=== PATIENT | female | born 1950 | race Caucasian/White ===

== ENCOUNTER 2017-01-30 16:34 | Emergency (ER) | payer MEDICARE ==
[2017-01-30 17:14] LABS: BASOPHILS 0.3 % (0-2); EOSINOPHILS 3.4 % (0-7); HEMATOCRIT 45.1 % (36.0-48.0); HEMOGLOBIN 15.1 g/dL (12-16); IMMATURE GRANULOCYTES 0.2 % (0-5); LYMPHOCYTES 24.9 % (15-50); MCH 31.5 pg (26.0-34.0); MCHC 33.5 g/dL (31.0-37.0); MEAN PLATELET VOLUME 10.1 fL (7.4-10.4); MONOCYTES 8.1 % (2-11); NEUTROPHILS 63.1 % (40-80); PLATELET COUNT 243 10x3/uL (130-400); RDW 12.7 % (11.5-14.5); WBC 8.7 10x3/uL (4.8-10.8)
[2017-01-30 17:34] LABS: ALBUMIN 4.4 g/dL (3.4-5.0); ALKALINE PHOSPHATASE 86 U/L (46-116); ALT (SGPT) 32 U/L (10-68); BILIRUBIN - TOTAL 0.56 mg/dL (0.2-1.3); CALC OSMOLALITY 282 mosm/kg (275-300); CALCIUM 9.3 mg/dL (8.5-10.1); CARBON DIOXIDE 25.7 mmol/L (21.0-32.0); CHLORIDE - SERUM 103 mmol/L (98-107); CREATININE - SERUM 1.4 mg/dL (0.6-1.3); GLUCOSE 87 mg/dL (74-106); PROTEIN - SERUM 7.8 g/dL (6.4-8.2); SODIUM 141 mmol/L (136-145); UREA NITROGEN 20 mg/dL (7-18); eGFR NON AFRICAN AMERICAN 40 mL/min (90-120)
[2017-01-30 17:44] LABS: CKMB 5.1 U/L (0.0-3.6); CREATINE KINASE 242 UL (21-215)
[2017-01-30 17:47] LABS: TROPONIN-I < 0.017 ng/mL (0.000-0.060)
== END 2017-01-30 18:51 | disposition home or self-care (01) ==
LOC: D.ER 16:34
PROVIDERS: Emergency Medicine
DX: R07.89 Other chest pain (principal)

== ENCOUNTER 2017-02-13 18:31 | Observation (INO) | payer MEDICARE ==
[2017-02-13 19:08] LABS: BASOPHILS 0.3 % (0-2); HEMATOCRIT 42.2 % (36.0-48.0); HEMOGLOBIN 14.1 g/dL (12-16); IMMATURE GRANULOCYTES 0.3 % (0-5); LYMPHOCYTES 23.8 % (15-50); MCH 31.3 pg (26.0-34.0); MCHC 33.4 g/dL (31.0-37.0); MCV 93.8 fL (80.0-100.0); MEAN PLATELET VOLUME 10.2 fL (7.4-10.4); MONOCYTES 8.3 % (2-11); NEUTROPHILS 64.3 % (40-80); PLATELET COUNT 204 10x3/uL (130-400); RDW 12.9 % (11.5-14.5); WBC 7.7 10x3/uL (4.8-10.8)
[2017-02-13 19:33] LABS: ALBUMIN 3.8 g/dL (3.4-5.0); ALKALINE PHOSPHATASE 82 U/L (46-116); ALT (SGPT) 25 U/L (10-68); BILIRUBIN - TOTAL 0.25 mg/dL (0.2-1.3); CALC OSMOLALITY 278 mosm/kg (275-300); CALCIUM 9.3 mg/dL (8.5-10.1); CARBON DIOXIDE 25.6 mmol/L (21.0-32.0); CHLORIDE - SERUM 103 mmol/L (98-107); CREATININE - SERUM 0.7 mg/dL (0.6-1.3); GLUCOSE 99 mg/dL (74-106); POTASSIUM - SERUM 3.6 mmol/L (3.5-5.1); PROTEIN - SERUM 7.2 g/dL (6.4-8.2); SODIUM 138 mmol/L (136-145); UREA NITROGEN 20 mg/dL (7-18); eGFR NON AFRICAN AMERICAN 89 mL/min (90-120)
[2017-02-13 19:43] LABS: MAGNESIUM - SERUM 2.3 mg/dL (1.8-2.4); PRO BNP 99 pg/mL (0-125)
[2017-02-13 19:47] LABS: TROPONIN-I < 0.017 ng/mL (0.000-0.060)
[2017-02-13 23:06] VITALS: BP 98/60; BMI 27.5
--- NOTE | 2017-02-14 00:45 | NUR ---
PT ARRIVED TO ROOM VIA STRETCHER FROM ER, AWAKE, ALERT, ORIENTED, SISTER AT BEDSIDE. PT IS C/O BEING DIZZY WHILE LYING DOWN. PTS HR HAS DROPPED INTO THE 30'S WHEN THIS HAPPENS. PT WAS BROUGHT TO ME WITH DILTIAZEM GTT AT 15MLS/HR, IN WHICH I DECREASED TO 10MLS THEN NOW @ 5 MLS/HR. PT IS CURRENTLY SITTING UP IN BED, LOOKING AT THE TELEVISION, AND TALKING ON HER CELL PHONE. TURKEY SANDWICH GIVEN TO PT ALONG WITH A CUP OF ICE WATER. NO OTHER NEEDS AT THIS TIME. I HAVE STRESSED TO PT AND HAVE URGED PT SEVERAL TIMES TO ALWAYS CALL BEFORE EVER TRYING TO GET UP R/T HER DIZZINESS AND BRADYCARDIA. PT HAS CONVERTED BACK INTO SINUS RHYTHM WITH A RATE IN THE LOW 40'S. WILL CONTINUE TO MONITOR PT CLOSELY. BED LOW, CALL LIGHT IN REACH, SIDE RAILS X 2, HOB 30-35 DEGREES.
[2017-02-14 01:54] VITALS: BP 88/51
--- NOTE | 2017-02-14 01:55 | NUR ---
I HAVE TURNED THE DILTIAZEM GTT OFF AT THIS TIME R/T PTS HR BEING 38-40 AND HER B/P BEING 88/51. I HAVE PLACED PT ON 02 VIA NC SO THAT PT CAN REST. PT IS C/O CHEST PAIN AND INCREASED SOB. O2 SAT WITH 2LPM IS 98%. WILL CONTINUE TO MONITOR PT CLOSELY.
--- NOTE | 2017-02-14 02:14 | NUR ---
PT STATES SHE IS NOT HAVING CHEST PAIN, JUST UNCOMFORTABLE R/T NOT BEING ABLE TO BREATH. SHE DOES NOT DEMONSTRATE DYSPNEA, BUT STATES THAT SHE JUST FEELS LIKE SHE CANNOT BREATH. PT DID RECEIVE A LOVENOX INJECTION IN THE ER. PT REMAINS AWAKE, ALERT, ORIENTED AT THIS TIME. WILL CONTINUE TO MONITOR CLOSELY.
--- NOTE | 2017-02-14 08:09 | NUR ---
ASSESSMENT DONE. DENIES NEEDS.
[2017-02-14 08:11] VITALS: BP 127/80
--- NOTE | 2017-02-14 08:36 | NUR ---
RESTS IN BED WITH CALL LIGHT IN REACH. WILL CONT. PLAN OF CARE.
[2017-02-14 12:10] VITALS: BP 121/69
[2017-02-14] MEDS ORDERED: XARELTO15 MG PO (13:57)
[2017-02-14] MEDS ORDERED: RYTHMOL PO (13:57)
[2017-02-14 15:26] VITALS: BP 126/53
--- NOTE | 2017-02-14 15:50 | NUR ---
DC GIVEN TO PT
--- NOTE | 2017-02-14 16:00 | NUR ---
DC HOME PER PERSONAL CAR
[2017-02-14 16:06] LABS: ALBUMIN 3.5 g/dL (3.4-5.0); ALKALINE PHOSPHATASE 73 U/L (46-116); ALT (SGPT) 25 U/L (10-68); CALC OSMOLALITY 284 mosm/kg (275-300); CALCIUM 8.9 mg/dL (8.5-10.1); CARBON DIOXIDE 25.8 mmol/L (21.0-32.0); CHLORIDE - SERUM 108 mmol/L (98-107); CREATININE - SERUM 0.8 mg/dL (0.6-1.3); GLUCOSE 106 mg/dL (74-106); PROTEIN - SERUM 6.5 g/dL (6.4-8.2); SODIUM 141 mmol/L (136-145); UREA NITROGEN 24 mg/dL (7-18); eGFR NON AFRICAN AMERICAN 76 mL/min (90-120)
[2017-02-14 16:25] LABS: BASOPHILS 0.4 % (0-2); EOSINOPHILS 4.6 % (0-7); HEMATOCRIT 41.1 % (36.0-48.0); HEMOGLOBIN 13.3 g/dL (12-16); IMMATURE GRANULOCYTES 0.4 % (0-5); LYMPHOCYTES 30.9 % (15-50); MCH 30.9 pg (26.0-34.0); MCHC 32.4 g/dL (31.0-37.0); MCV 95.4 fL (80.0-100.0); MEAN PLATELET VOLUME 10.5 fL (7.4-10.4); MONOCYTES 8.8 % (2-11); NEUTROPHILS 54.9 % (40-80); PLATELET COUNT 217 10x3/uL (130-400); RBC 4.31 10x6/uL (4.00-5.40); RDW 13.1 % (11.5-14.5); WBC 6.7 10x3/uL (4.8-10.8)
--- NOTE | 2017-02-22 12:47 | EC ---
PATIENT:CARMEN RAUSCH DATE OF SERVICE: 02/13/17 SEX: F MEDICAL RECORD: [id number] DATE OF : 50 LOCATION:D.M2 D.212 AGE OF PATIENT: 66 ADMISSION DATE: 02/13/17 REFERRING PHYSICIAN: INTERPRETING PHYSICIAN: JANE GERMAN MD ECHOCARDIOGRAM REPORT ECHO CHARGES 4 ECHO COMPLETE CLINICAL DIAGNOSIS: FLUTTER ECHOCARDIOGRAPHIC MEASUREMENTS (adult normal given) AC root (d.<3.7cm) 2.8 cm LV Septum d (<1.2 cm> 1.4 cm Valve Excursion 1.7 cm LV Septum (systole) 1.6 cm Left Atria (s.<4.0cm> 3.9 cm LVPW d(<1.2cm) 1.2 cm RV (d.<2.3cm) 1.8 cm LVPW (sytole) 1.7 cm LV diastole(<5.6CM) 5.7 cm MV E-F(>70mm/sec) cm LV systole 4.4 cm LVOT Diameter 1.7 cm MV exc.(>10mm) cm Est.ejection fraction (50-75%) % Pericardial Effusion N DOPPLER: LVIT cm/sec A 60.0 cm/sec E 86.0 cm/sec LA cm/sec RVSP 31.0 mmHg LVOT 118 cm/sec AOP1/2T m/s Asc. Ao 162 cm/sec RVOT 59.0 cm/sec RA cm/sec PA 93.0 cm/sec AV Gradient Peak 10.4 mmHg AV Mean 5.1 mmHg AV Area 1.5 cm MV Gradient Peak 4.1 mmHg MV Mean 1.5 mmHg MV Area cm COMMENTS: Claim Professional: Luis Armando CHACKOOE Billing Checker: Debora German TAPE# PACS DATE OF SERVICE: 02/14/2017 PROCEDURE: Transthoracic echocardiogram. FINDINGS: 1. The left ventricle shows evidence of left ventricular hypertrophy, in-flow characteristics are normal. The ejection fraction is 60%. There is no significant abnormalities of the left ventricle. 2. Left atrium is normal size, normal function. 3. The aortic valve appears structurally normal. ECHOCARDIOGRAM REPORT [id number] CARMEN RAUSCH 4. The tricuspid valve has trace tricuspid regurgitation and normal right ventricular systolic pressures with a peak systolic pressure of approximately 20. 5. The mitral shows mild to mildly moderate mitral regurgitation. 6. Pericardium is normal. 7. The right atrium and right ventricle are normal size, normal shape, normal structure and there is no evidence of right-sided pressure overloading. CONCLUSIONS: The patient has evidence of mild hypertensive heart disease. Otherwise, a fairly normal echocardiogram. TRANSINT:[id number] Voice Confirmation ID: [id number] DOCUMENT ID: [id number] JANE GERMAN MD at 1247 CC: [id number] DICTATION DATE: 02/15/17917 LEGAL BILLING ANALYST: 02/15/17 1050 DIS IN 02/14/17 [facility] [address] [place] [address]
== END 2017-02-14 16:01 | disposition home or self-care (01) ==
LOC: D.ER 18:31 → OBSVTIME 20:20 → D.M2 20:20
PROVIDERS: Family Medicine; ADMIT Family Medicine
DX: I48.91 Unspecified atrial fibrillation (principal); I48.92 Unspecified atrial flutter; Z87.891 Personal history of nicotine dependence; R55 Syncope and collapse

== ENCOUNTER 2017-04-23 19:27 | Inpatient (IN) | payer MEDICARE ==
[~2017-04-23] VITALS: Ht 157.5 cm; Wt 70.5 kg
[~2017-04-23 19:27] MED LIST: RYTHMOL PO; XARELTO15 MG PO
--- NOTE | 2017-04-23 21:15 | NUR ---
PT ARRIVES TO FLOOR VIA EMS, ROOM 2117. PT DENIES ANY C/O CHEST PAIN UPON ARRIVAL. VSS, A-FLUTTER ON TELE, HR 95-125. CARDIZEM @ 15 MG/HR TO LEFT WRIST AREA, SITE APPEARS CDI AND IV PATENT. GOOD BLOOD RETURN NOTED. SISTER, JAMES, IS AT THE BEDSIDE. ADMISSION ASSESSMENT COMPLETED, HISTORY OBTAINED. MEDICATIONS REVIEWED AT THE BEDSIDE. CALL LIGHT PLACED WITHIN REACH. WILL PLACE CALL TO DR WALTON FOR FURTHER ORDERS.
--- NOTE | 2017-04-23 21:30 | NUR ---
CALL TO DR WALTON ORDERED. VS AND CARDIZEM RATE REVIEWED AND CURRENT TELEMETRY READINGS. STATES TO CONT CARDIZEM GTT TONIGHT AND HE WILL SEE THE PT IN THE MORNING. NO OTHER MEDICATIONS ORDERED AT THIS TIME. PT UPDATED ON POC AND CALL LIGHT PLACED WITHIN REACH. WILL CONT TO MONITOR.
[2017-04-23 21:42] VITALS: BP 132/73; Ht 157.5 cm; Wt 70.5 kg
[2017-04-23 21:44] VITALS: BP 132/73
--- NOTE | 2017-04-23 22:10 | NUR ---
PT CONVERTS TO NSR ON MONITOR. HR 70. CARDIZEM CONT AT 15 MG/HR. WILL CONT TO MONITOR.
[2017-04-23] MEDS ORDERED: CYCLOBENZAPRINE10 MG PO (22:12)
[2017-04-23] MEDS ORDERED: RELAFEN500 MG PO (22:29)
[2017-04-24] VITALS: BP 146/76
[2017-04-24 04:00] VITALS: BP 172/79
--- NOTE | 2017-04-24 04:41 | NUR ---
HR NOW IN THE LOW 60'S AND REMAINS NSR ON MONITOR. CARDIZEM REDUCED TO 10 MG/HR. WILL CONT TO MONITOR.
--- NOTE | 2017-04-24 07:30 | NUR ---
RECEIVED PT IN BED AAOX4 RESP UNLABORED DENIES ANY NEEDS OR DISCOMFORT WILL CONTINUE TO MONITOR
[2017-04-24 07:47] VITALS: BP 101/74
[2017-04-24 11:31] VITALS: BP 133/64
[2017-04-24 15:40] VITALS: BP 130/60
--- NOTE | 2017-04-24 20:01 | NUR ---
PT RESTING COMFORTABLY, STATES SHE IS HAVING "NON-CARDIAC" CHEST PAIN AT THIS TIME. PT STATES SHE FEELS IT IS FROM WHEN HER HEART WAS BEATING SO FAST THAT IT HAS CAUSED MUSCLE SORENESS. NO OTHER NEEDS. WILL CONTINUE TO MONITOR CLOSELY.
--- NOTE | 2017-04-24 21:01 | NUR ---
CARDIZEM GTT STOPPED PER ORDER, PO RHYTHMOL GIVEN.
[2017-04-24 21:29] VITALS: BP 132/64
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
[2017-04-25 00:48] VITALS: BP 123/69
[2017-04-25 05:25] VITALS: BP 119/71
--- NOTE | 2017-04-25 06:24 | NUR ---
PT RESTING COMFORTABLY, NO NEEDS. CONTINUE TO MONITOR CLOSELY.
[2017-04-25 08:05] VITALS: BP 157/90
--- NOTE | 2017-04-25 09:15 | NUR ---
Patient Name: CARMEN RAUSCH Admission Status: Elective Accout number: [id number] Admission Date: 04-23-2017 : 1950 Admission Diagnosis: Attending: TONI WALTON Current LOS: 2 Anticipated DC Date: 04-25-2017 Planned Disposition: Home Primary Insurance: MEDICARE A & B Discharge Planning Comments: * Is the patient Alert and Oriented? Yes 0 * How many steps to enter\exit or inside your home? NONE 0 * PCP DR. ALEJANDRO 0 * Pharmacy [facility] [address] 0 * Preadmission Environment Home with Family 0 * ADLs Independent 0 * Equipment None 0 * Other Equipment NO MEDICAL EQUIPMENT PROVIDER PREFERENCE 0 * List name and contact numbers for known caregivers / representatives who currently or will assist patient after discharge: JAMES RAUSCH, SISTER, 0 * Community resources currently utilized None 0 * Please name any agencies selected above. NONE 0 * Additional services required to return to the preadmission environment? No 0 * Can the patient safely return to the preadmission environment? Yes 0 * Has this patient been hospitalized within the prior 30 days at any hospital? No 0 CM MET WITH PT IN ROOM TO DISCUSS DISCHARGE PLANNING AND NEEDS. PT REPORTS LIVING AT HOME INDEPENDENTLY WITH ADULT SISTER. PT HAS NO MEDICAL EQUIPMENT AND NO OUTSIDE SERVICES ASSISTING IN THE HOME. CM DISCUSSED AVAILABILITY OF HOME HEALTH, REHAB SERVICES AND MEDICAL EQUIPMENT. PT DENIES DISCHARGE NEEDS, REPORTS HER SISTER IS HERE TO PICK HER UP FOR DISCHARGE HOME TODAY. Bale Piler: Rachid Rollins
--- NOTE | 2017-04-25 09:32 | NUR ---
IV AND TELEMETRY DCD. DC PLANS GIVEN. UNDERSTANDING VOICED. ESCORTED TO CAR BY W/C.
== END 2017-04-25 09:33 | disposition home or self-care (01) | DRG 310 ==
LOC: D.MS 19:27 → D.M2 21:30
PROVIDERS: ADMIT Internal Medicine Cardiovascular Disease
DX: I48.92 Unspecified atrial flutter (principal); F90.9 Attention-deficit hyperactivity disorder, unspecified type

== ENCOUNTER → 2017-08-07 10:03 | Outpatient (CLI) | payer MEDICARE ==
[2017-04-23 21:42] VITALS: BMI 29.5
[~2017-08-07 10:03] MED LIST changes: +CYCLOBENZAPRINE10 MG PO; +RELAFEN500 MG PO
== END | disposition home or self-care (01) ==
LOC: D.NM 10:03
DX: T84.84XA Pain due to internal orthopedic prosthetic devices, implants and grafts, initial encounter (principal)

== ENCOUNTER → 2017-10-01 09:50 | Outpatient (CLI) | payer MEDICARE ==
[2017-04-23 21:42] VITALS: BMI 29.5
== END | disposition home or self-care (01) ==
LOC: D.SP 09:50
DX: M53.3 Sacrococcygeal disorders, not elsewhere classified (principal); Z01.812 Encounter for preprocedural laboratory examination

== ENCOUNTER → 2017-11-08 13:08 | Outpatient (CLI) | payer MEDICARE ==
[2017-04-23 21:42] VITALS: BMI 29.5
== END | disposition home or self-care (01) ==
LOC: D.MRI 13:08
DX: G96.8 Other specified disorders of central nervous system (principal)

== ENCOUNTER 2018-01-31 05:35 | Day surgery (SDC) | payer MEDICARE ==
[2018-01-30 10:56] LABS: HEMATOCRIT 37.5 % (36.0-48.0); HEMOGLOBIN 12.3 g/dL (12-16); MCH 31.1 pg (26.0-34.0); MCHC 32.8 g/dL (31.0-37.0); MCV 94.9 fL (80.0-100.0); MEAN PLATELET VOLUME 10.2 fL (7.4-10.4); RBC 3.95 10x6/uL (4.00-5.40); RDW 13.6 % (11.5-14.5); WBC 5.8 10x3/uL (4.8-10.8)
[~2018-01-31] VITALS: Ht 157.5 cm; Wt 65.8 kg
--- NOTE | ~2018-01-31 | OP ---
PATIENT NAME: CARMEN RAUSCH MEDICAL RECORD: [id number] :50 LOCATION:[facility] ADMISSION DATE: SURGEON: SASHA PEREZ MD DATE OF OPERATION: 01/31/2018 PREOPERATIVE DIAGNOSES: Lumbar spinal stenosis with neurogenic claudication at L3-L4 with bilateral L4 radiculopathy. POSTOPERATIVE DIAGNOSES: Lumbar spinal stenosis with neurogenic claudication at L3-L4 with bilateral L4 radiculopathy. PROCEDURE: Lumbar laminectomy of L3-L4 on the left with sublaminar decompression, L3-L4 on the right, the bilateral foraminotomies at L3-L4. SURGEON: Sasha Perez MD PRIMARY CARE DOCTOR: Dr. Alejandro. DESCRIPTION AND TECHNIQUE: After induction of general endotracheal anesthesia, the patient was rolled prone on a Matheus frame. Lumbar spine was prepped and draped in usual sterile fashion. Fluoroscopic x-ray and spinal needle localized the L3-L4 interspace on the left side. A series of dilators was used to advance a METRx retractor at L3-L4 on the left. A stab incision was created with #11 blade. Series of dilators were used to advance the METRx retractor L3-L4 on the left. The level was confirmed with fluoroscopic x-ray. A microscope and Midas-Sarkis drill were used to perform a laminectomy, medial facetectomy, and foraminotomy at L3-L4 on the left side. Hypertrophied ligamentum flavum was removed with Cloward rongeurs. Following this, the spinous process of L3 was undermined with a Midas-Sarkis drill. The hypertrophied ligamentum flavum in a sublaminar space was decompressed with Cloward rongeurs. A foraminotomy was carried out on the opposite side with Cloward rongeurs. Following this, the L3 and L4 nerve roots on both sides were decompressed as well. Meticulous hemostasis was maintained throughout the wound and this was irrigated with copious amounts of Ancef irrigant solution. The fascia was closed with 2-0 Vicryl suture, the subdermal layer was closed with 3-0 Vicryl suture. The skin was reapproximated with Dermabond. All counts were reported as correct. Estimated blood loss was minimal. TRANSINT:[id number] Voice Confirmation ID: [id number] DOCUMENT ID: [id number] SASHA PEREZ MD at 1346 CC: SASHA ALEJANDRO MD [id number] DICTATION DATE: 01/31/18 0942 OPTIC FIBRE DRAWER: 01/31/18 1004 [address] [place] [id number] [place] [id number]
[~2018-01-31 05:35] MED LIST changes: +BYSTOLIC5 MG PO
[2018-01-31 06:34] VITALS: BP 127/55; Ht 157.5 cm; Wt 65.8 kg
[2018-01-31] MEDS ORDERED: PERCOCET 7.5/321 TAB PO (09:30)
[2018-02-01] MEDS ORDERED: ZOFRAN ODT4 MG/UDTAB PO (00:16)
[2018-02-01] MEDS ORDERED: DILAUDID2 MG PO (00:16)
== END 2018-01-31 14:20 | disposition home or self-care (01) ==
LOC: D.OPS 05:35 → D.PAN 07:30 → D.OPS 14:20
PROVIDERS: Anesthesiology
DX: M48.062 Spinal stenosis, lumbar region with neurogenic claudication (principal); M54.16 Radiculopathy, lumbar region; Z01.812 Encounter for preprocedural laboratory examination

== ENCOUNTER 2018-01-31 22:21 | Inpatient (IN) | payer MEDICARE ==
[~2018-01-31] VITALS: Ht 157.5 cm; Wt 65.9 kg
[~2018-01-31 22:21] MED LIST changes: +PERCOCET 7.5/321 TAB PO
[2018-02-01] VITALS (8 sets, daily range): BP systolic 110–165; BP diastolic 53–75; Ht 157.5 cm; Wt 65.9 kg
[2018-02-01] MEDS ORDERED: ZOFRAN ODT4 MG/UDTAB PO (00:16)
[2018-02-01] MEDS ORDERED: DILAUDID2 MG PO (00:16)
[2018-02-02 04:59] VITALS: BP 158/78
[2018-02-02] MEDS ORDERED: RYTHMOL SR225 MG PO (05:58)
[2018-02-02 07:03] VITALS: BP 164/80
[2018-02-02 20:27] VITALS: BP 145/74
[2018-02-03 01:03] VITALS: BP 138/74
[2018-02-03 04:59] VITALS: BP 124/54
[2018-02-03 09:41] VITALS: BP 145/76
[2018-02-03 15:53] VITALS: BP 133/67
[2018-02-03 20:05] VITALS: BP 143/66
[2018-02-04 03:43] VITALS: BP 129/77
[2018-02-04 04:57] LABS: BASOPHILS 0 % (0-2); EOSINOPHILS 0 % (0-7); HEMATOCRIT 35.1 % (36.0-48.0); HEMOGLOBIN 11.7 g/dL (12-16); IMMATURE GRANULOCYTES 0.2 % (0-5); LYMPHOCYTES 5.9 % (15-50); MCH 31.1 pg (26.0-34.0); MCHC 33.3 g/dL (31.0-37.0); MCV 93.4 fL (80.0-100.0); MEAN PLATELET VOLUME 10.4 fL (7.4-10.4); MONOCYTES 5.2 % (2-11); NEUTROPHILS 88.7 % (40-80); RBC 3.76 10x6/uL (4.00-5.40); RDW 13.6 % (11.5-14.5)
[2018-02-04 05:07] LABS: CALC OSMOLALITY 284 mosm/kg (275-300); CALCIUM 8.7 mg/dL (8.5-10.1); CHLORIDE - SERUM 104 mmol/L (98-107); CREATININE - SERUM 0.7 mg/dL (0.6-1.3); GLUCOSE 146 mg/dL (74-106); POTASSIUM - SERUM 3.8 mmol/L (3.5-5.1); SODIUM 140 mmol/L (136-145); UREA NITROGEN 20 mg/dL (7-18); eGFR NON AFRICAN AMERICAN 88 mL/min (90-120)
[2018-02-04 05:09] LABS: PLATELET COUNT 268 10x3/uL (130-400)
[2018-02-04] MEDS ORDERED: LYRICA75 MG PO (07:35)
[2018-02-04 08:02] VITALS: BP 150/71
== END 2018-02-04 12:22 | disposition home or self-care (01) | DRG 948 ==
LOC: D.ER 22:21 → D.EDHOLD 02-01 01:15 → OBSVTIME 02-01 01:15 → D.EDHOLD 02-01 01:15 → D.MS 02-01 10:53
PROVIDERS: Family Medicine
DX: G89.18 Other acute postprocedural pain (principal); G43.909 Migraine, unspecified, not intractable, without status migrainosus; I48.91 Unspecified atrial fibrillation; Z79.01 Long term (current) use of anticoagulants; R27.0 Ataxia, unspecified; M54.5 Low back pain

== ENCOUNTER → 2019-01-06 11:11 | Outpatient (CLI) | payer MEDICARE ==
[2018-02-01 12:32] VITALS: BMI 26.6
[~2019-01-06 11:11] MED LIST changes: +DILAUDID2 MG PO; +LYRICA75 MG PO; +RYTHMOL SR225 MG PO; +ZOFRAN ODT4 MG/UDTAB PO
== END | disposition home or self-care (01) ==
LOC: D.HCCARDIO 11:00
PROVIDERS: ATTEND Internal Medicine Cardiovascular Disease
DX: I34.0 Nonrheumatic mitral (valve) insufficiency (principal)